=== PATIENT | female | born 2000 | race Caucasian/White ===

== ENCOUNTER 2020-02-26 00:05 | Emergency (ER) | payer OTHER ==
[~2020-02-26] VITALS: Ht 160 cm; Wt 66.8 kg
[2020-02-26 00:06] VITALS: BP 133/71
[2020-02-26] MEDS ORDERED: methocarbamoL 750 MG TAB PO ONE (04:30)
[2020-02-26] MEDS ORDERED: OXYCODONE/APAP 5MG/325MG(BULK FOR ED) 1 TABLET PO ONE (04:30)
[2020-02-26] MEDS ORDERED: ROBA750T4 PO (04:31)
== END 2020-02-26 04:37 | disposition home or self-care (01) ==
LOC: M ED 00:05
DX: M25.562 Pain in left knee (principal); Z91.013 Allergy to seafood; F17.200 Nicotine dependence, unspecified, uncomplicated; M54.5 Low back pain

== ENCOUNTER → 2020-12-25 | Outpatient (REF) | payer OTHER ==
[~2020-12-25] MED LIST: ROBA750T4 PO
== END ==
LOC: M PLALAB 10:03
PROVIDERS: ATTEND Obstetrics & Gynecology
DX: N97.9 Female infertility, unspecified (principal); Z53.9 Procedure and treatment not carried out, unspecified reason

== ENCOUNTER → 2020-12-26 | Outpatient (REF) | payer OTHER ==
[2020-12-26 15:25] LABS: FREE T4 0.87 NG/DL (0.78-1.33); THYROID STIMULATING HORMONE 3.63 uIU/ML (0.463-3.98)
[2020-12-26 15:28] LABS: ESTRADIOL 23.9 PG/ML; LUTEINIZING HORMONE 5.5 mIU/mL; PROGESTERONE 0.74 NG/ML; PROLACTIN 11.4 NG/ML
[2020-12-26 15:29] LABS: FOLLICLE STIMULATING HORMONE 6.8 mIU/mL
== END ==
LOC: M PLALAB 12:29
PROVIDERS: ATTEND Obstetrics & Gynecology
DX: N97.9 Female infertility, unspecified (principal)

== ENCOUNTER → 2021-02-06 | Outpatient (REF) | payer OTHER ==
[~2021-02-06] MED LIST changes: +PREN200C PO
== END ==
LOC: M PLALAB 09:44
PROVIDERS: ATTEND Obstetrics & Gynecology
DX: Z34.81 Encounter for supervision of other normal pregnancy, first trimester (principal); Z3A.01 Less than 8 weeks gestation of pregnancy
CPT/HCPCS: 36415; 84702; 86900; 86901; G0463

== ENCOUNTER → 2021-02-08 | Outpatient (REF) | payer OTHER ==
[~2021-02-08] MED LIST changes: -PREN200C PO
== END ==
LOC: M PLALAB 10:43
PROVIDERS: ATTEND Obstetrics & Gynecology
DX: Z36.89 Encounter for other specified antenatal screening (principal); Z3A.01 Less than 8 weeks gestation of pregnancy

== ENCOUNTER 2021-02-10 12:45 | Emergency (ER) | payer OTHER ==
[~2021-02-10] VITALS: Ht 162.6 cm; Wt 73.2 kg
[2021-02-10] MEDS ORDERED: PREN200C PO (12:51)
[2021-02-10 13:50] LABS: BASO % 0.3 % (0.0-1.0); EOS # 0.3 10^3/uL (0.0-0.5); EOS % 3.6 % (0.0-3.0); HEMATOCRIT 36.9 % (36.0-47.0); HEMOGLOBIN 12.1 g/dl (12.0-15.5); LYMPH # 1.8 10^3/uL (1.5-5.0); LYMPH % 26.4 % (24.0-44.0); MEAN CORPUSCULAR HEMOGLOBIN 27.8 pg (27.0-33.0); MEAN CORPUSCULAR HGB CONC 32.8 g/dl (32.0-36.5); MEAN CORPUSCULAR VOLUME 84.8 fl (80.0-96.0); MONO # 0.6 10^3/uL (0.0-0.8); MONO % 8.8 % (2.0-8.0); NEUTROPHILS # 4.2 10^3/uL (1.5-8.5); NEUTROPHILS % 60.6 % (36.0-66.0); PLATELET COUNT, AUTOMATED 287 10^3/uL (150-450); RED BLOOD COUNT 4.35 10^6/uL (4.00-5.40); WHITE BLOOD COUNT 6.9 10^3/uL (4.0-10.0)
[2021-02-10 14:55] LABS: BLOOD UREA NITROGEN 8 MG/DL (7-18); CALCIUM LEVEL 8.8 MG/DL (8.5-10.1); CARBON DIOXIDE LEVEL 24 MEQ/L (21-32); CHLORIDE LEVEL 108 MEQ/L (98-107); CREATININE FOR GFR 0.61 MG/DL (0.55-1.30); GLUCOSE, FASTING 96 MG/DL (70-100); HCG, SERUM QUANTITATIVE 13243 MIU/ML; POTASSIUM SERUM 3.6 MEQ/L (3.5-5.1); SODIUM LEVEL 139 MEQ/L (136-145)
--- NOTE | 2021-02-10 14:57 | REP ---
INDICATION: vag bleeding COMPARISON: None. TECHNIQUE: Transabdominal and transvaginal 1st trimester obstetrical ultrasound with color Doppler evaluation. FINDINGS: Single live early intrauterine is appreciated. Gestational sac with yolk sac and pole identified. [place]-rump length of 2 mm corresponds to 5 weeks 5 days gestational age with estimated date of delivery 10/08/2021. heart rate equals 103 beats per minute. No gross abnormalities are identified. IMPRESSION: Single live early intrauterine at 5 weeks 5 days gestational age. Complete anatomical assessment should be performed and 19-20 weeks. <Electronically signed by Umer Bird > 02/10/21 [id number]
[2021-02-10 15:13] VITALS: BP 102/50
== END 2021-02-10 15:14 | disposition home or self-care (01) ==
LOC: M ED 12:45
DX: O26.859 Spotting complicating pregnancy, unspecified trimester (principal); Z3A.01 Less than 8 weeks gestation of pregnancy; Z91.013 Allergy to seafood

== ENCOUNTER 2021-02-16 00:27 | Emergency (ER) | payer OTHER ==
[~2021-02-16] VITALS: Ht 162.6 cm; Wt 73.3 kg
[~2021-02-16 00:27] MED LIST changes: +PREN200C PO
[2021-02-16 04:44] VITALS: BP 117/56
--- NOTE | 2021-02-16 05:24 | REPVR ---
PROCEDURE INFORMATION: Exam: US First Trimester, Transabdominal Exam date and time: 02/16/2021 3:50 AM Age: 20 years old Clinical indication: Lmp or gestational age (in weeks): 12/23/2020; Other: Vaginal bleeding; ; Additional info: Th ab, hcg rise inadequate TECHNIQUE: Imaging protocol: Real-time transabdominal obstetrical ultrasound of the maternal pelvis and a first trimester , less than 14 weeks 0 days, with image documentation. COMPARISON: No relevant prior studies available. FINDINGS: Gestation: Single viable intrauterine gestation. Yolk sac present. Embryonic/ heart rate: heart rate is 127 beats per minute. Extra-embryonic membranes/Placenta: Small subchorionic hemorrhage. Amniotic fluid: Amniotic fluid is normal for gestational age. BIOMETRY: Gestational age (AUA): Sonographically estimated gestational age is 6 weeks 1 day. Estimated due date (AUA): Estimated date of delivery is 10/11/2021. [place]-Rump length: [place]-rump length of the pole is approximately 4 mm. MATERNAL: Uterus: Unremarkable. Cervix: Unremarkable. Right adnexa: Right ovary is obscured by bowel gas. Left adnexa: Left ovary is obscured by bowel gas. Intraperitoneal space: No intraperitoneal free fluid. IMPRESSION: Single viable intrauterine gestation 6 weeks 1 day of age. Small subchorionic hemorrhage. Electronically signed by: Anirudh López On 02/16/2021 05:24:46 AM
== END 2021-02-16 04:45 | disposition home or self-care (01) ==
LOC: M ED 00:27
DX: O20.0 Threatened abortion (principal); Z87.59 Personal history of other complications of pregnancy, childbirth and the puerperium; Z3A.01 Less than 8 weeks gestation of pregnancy; O20.8 Other hemorrhage in early pregnancy; Z79.899 Other long term (current) drug therapy; Z91.013 Allergy to seafood

== ENCOUNTER → 2021-02-20 | Outpatient (REF) | payer OTHER | LOC: M PLALAB 12:40 | PROVIDERS: ATTEND Obstetrics & Gynecology | DX: Z36.89 Encounter for other specified antenatal screening (principal); Z3A.08 8 weeks gestation of pregnancy ==

== ENCOUNTER → 2021-03-28 | Outpatient (CLI) | payer OTHER ==
[2021-03-28 15:31] LABS: HEMATOCRIT 34.1 % (36.0-47.0); HEMOGLOBIN 11.3 g/dl (12.0-15.5); MEAN CORPUSCULAR HEMOGLOBIN 28.3 pg (27.0-33.0); MEAN CORPUSCULAR HGB CONC 33.1 g/dl (32.0-36.5); MEAN CORPUSCULAR VOLUME 85.5 fl (80.0-96.0); PLATELET COUNT, AUTOMATED 273 10^3/uL (150-450); RED BLOOD COUNT 3.99 10^6/uL (4.00-5.40); WHITE BLOOD COUNT 10.9 10^3/uL (4.0-10.0)
[2021-03-28 16:16] LABS: HIV 1&2 SCREEN CENTAUR NEGATIVE (NEGATIVE)
[2021-03-28 17:14] LABS: GC DNA AMPLIFICATION NEGATIVE (NEGATIVE)
== END ==
LOC: M PLALAB 09:39
PROVIDERS: ATTEND Obstetrics & Gynecology
DX: Z36.89 Encounter for other specified antenatal screening (principal); Z3A.08 8 weeks gestation of pregnancy
CPT/HCPCS: 36415; 85027; 86762; 86780; 86803; 86850; 86900; 86901; 87086; 87340; 87389; 87491; 87591; G0463

== ENCOUNTER → 2021-05-22 | Outpatient (CLI) | payer OTHER ==
--- NOTE | 2021-05-23 06:10 | REP ---
INDICATION: ANATOMY COMPARISON: None. TECHNIQUE: Transabdominal obstetrical ultrasound with color Doppler evaluation. FINDINGS: Examination demonstrates a single live intrauterine in variable presentation. motion is identified by technologist. Placenta is noted anterior and grade 0 without evidence for placenta previa or abruption. Amniotic fluid volume is normal. Cervix measures 3.3 cm in length and appears closed.. Selected gestational age: 20 weeks 1 day with SHILPI 10/08/2021. Gestational age by current measurements 20 weeks 5 days with SHILPI 10/04/2021. FHR equals 135 beats per minute. BPD: 4.7 cm at 20 weeks 2 days HC: 17.7 cm at 20 weeks 1 day AC: 16.8 cm at 21 weeks 6 days FL: 3.5 cm at 20 weeks 6 days HL: 3.2 cm at 20 weeks 5 days HC/AC: 1.05 Estimated weight 408 grams (35thpercentile based on age by LMP at 21 weeks 3 days; greater than 97th percentile based on age by 1st ultrasound). Anatomical assessment demonstrates normal structures including cranium, choroid plexus, cavum, cerebellum/posterior fossa, facial features, lungs, diaphragm, stomach, cord insertion/three-vessel cord, kidneys/bladder, spine, and extremities. IMPRESSION: Single live intrauterine in variable presentation. Estimated weight and growth as described above warrants correlation. Limited evaluation of the heart/ventricular outflow tracts. Remainder of the anatomical assessment is complete and normal. <Electronically signed by Umer Bird > 05/23/21 [id number]
== END ==
LOC: M WHC 14:39
PROVIDERS: ATTEND Advanced Practice Midwife
DX: Z36.89 Encounter for other specified antenatal screening (principal); Z3A.21 21 weeks gestation of pregnancy
CPT/HCPCS: 76811; G0463

== ENCOUNTER 2021-07-03 19:46 | Outpatient (CLI) | payer OTHER ==
[~2021-07-03] VITALS: Ht 162.6 cm; Wt 81.2 kg
[2021-07-03 20:02] VITALS: BP 117/74
[2021-07-03] MEDS ORDERED: HOME MED LIST COMPLETE! XX SCH (20:15)
--- NOTE | 2021-07-03 21:09 | IPNPDOC ---
Obstetrical Progress Note Date of Service Jul 03, 2021 Subjective Subjective/HPI: 20-year-old at 25+5 weeks' gestation. Final EDC of 10/11/2021 by LMP consistent with a first trimester ultrasound. Presents today complaining of uterine cramping/possible contraction/pelvic discomfort. Denies any vaginal bleeding or loss of fluid. Reports regular movement. Denies headache, visual changes, shortness of breath, chest pain. course uncomplicated PMH/SH: Knee/ortho Objective: Normotensive. Normal heart rate. Afebrile Abdomen soft, nontender, nondistended. Uterine fundus , nontender. Extremities nonedematous, nontender Pelvic: Sterile speculum exam reveals a visually closed cervix, no pooling, no vaginal bleeding, no abnormal discharge or foul odor. Sterile vaginal/cervical exam reveals a closed long thick cervix. Transvaginal ultrasound, limited: Cervical length 4.0cm. No dynamic changes/funneling. Cephalic presentation. fFN negative EFM: Reactive, moderate variability, no decelerations [place]: No evidence of contraction pattern Assessment/plan: 20 year-old at 25+5 weeks' gestation. No evidence of premature ruptured membranes, active labor, advanced cervical dilation, or shortened cervical length. Current maternal and condition is reassuring. -Routine third trimester precautions were reviewed -Follow-up in the office as scheduled Objective Vital Signs Date Time Temp Pulse Resp B/P (MAP) Pulse Ox O2 Delivery O2 Flow Rate FiO2 07/03/21 20:02 97.6 109 18 117/74 (88) SHARON STERN DO Jul 03, 2021 21:09
== END 2021-07-03 22:00 | disposition home or self-care (01) ==
LOC: M LDO 19:46
PROVIDERS: ATTEND Obstetrics & Gynecology
DX: O26.892 Other specified pregnancy related conditions, second trimester (principal); R10.2 Pelvic and perineal pain; Z3A.25 25 weeks gestation of pregnancy
CPT/HCPCS: 59025; 76815; 81001; 82731; G0378; G0463

== ENCOUNTER → 2021-07-12 | Outpatient (CLI) | payer OTHER ==
[2021-07-12 10:37] LABS: HEMATOCRIT 29.5 % (36.0-47.0); HEMOGLOBIN 9.6 g/dl (12.0-15.5); MEAN CORPUSCULAR HEMOGLOBIN 30.1 pg (27.0-33.0); MEAN CORPUSCULAR HGB CONC 32.5 g/dl (32.0-36.5); MEAN CORPUSCULAR VOLUME 92.5 fl (80.0-96.0); PLATELET COUNT, AUTOMATED 297 10^3/uL (150-450); RED BLOOD COUNT 3.19 10^6/uL (4.00-5.40); WHITE BLOOD COUNT 10.4 10^3/uL (4.0-10.0)
== END ==
LOC: M PLALAB 07:55 → M LAB 07:55
PROVIDERS: ATTEND Advanced Practice Midwife
DX: Z34.82 Encounter for supervision of other normal pregnancy, second trimester (principal); Z36.89 Encounter for other specified antenatal screening; Z36.2 Encounter for other antenatal screening follow-up; Z3A.27 27 weeks gestation of pregnancy

== ENCOUNTER → 2021-07-12 | Outpatient (CLI) | payer OTHER ==
--- NOTE | 2021-07-12 14:06 | REP ---
INDICATION: F/U ANATOMY 4 CHAMBER HEART VOTS. COMPARISON: 05/22/2021. TECHNIQUE: Real-time sonographic evaluation of the gravid uterus performed. FINDINGS: Estimated gestational age is27 weeks 3 days, EDC 10/08/2021. Today's measurements indicate appropriate growth. Presentation: Cephalic Placenta anterior, grade 1, without evidence of placenta previa. heart rate is recorded at 161 beats per minute. Amniotic fluid is subjectively normal. Closed cervical length is measured at 4.7 cm. Biometry chart: BPD: 69 mm, 27 weeks 5 days, 55th percentile. HC: 263 mm, 28 weeks 5 days, 76th percentile AC: 237 mm, 28 weeks 0 days, 61st percentile Femur length: 53 mm, 28 weeks 0 days, 61st percentile HC to AC ratio: 1.11, normal range 1.00-1.18. Estimated weight: 1162g, 60th percentile. Four-chamber heart and ventricular outflow tracts are visualized and are grossly unremarkable. IMPRESSION: Viable single intrauterine gestation as above. <Electronically signed by Rosales Rivera > 07/12/21 [id number]
== END ==
LOC: M WHC 08:03
PROVIDERS: ATTEND Advanced Practice Midwife
DX: Z36.2 Encounter for other antenatal screening follow-up (principal)

== ENCOUNTER → 2021-07-30 | Outpatient (CLI) | payer OTHER | LOC: M LAB 08:54 | PROVIDERS: ATTEND Advanced Practice Midwife | DX: O99.810 Abnormal glucose complicating pregnancy (principal) ==

== ENCOUNTER → 2021-09-20 | Outpatient (REF) | payer OTHER ==
[~2021-09-20] MED LIST changes: +ACET1TAB55 PO
== END ==
LOC: M SFHCWAGY 16:45
PROVIDERS: ATTEND Obstetrics & Gynecology
DX: O24.419 Gestational diabetes mellitus in pregnancy, unspecified control (principal)
CPT/HCPCS: 87081; 87186; G0463

== ENCOUNTER → 2021-09-28 | Outpatient (CLI) | payer OTHER | LOC: M WHC 12:12 | PROVIDERS: ATTEND Obstetrics & Gynecology | DX: O24.419 Gestational diabetes mellitus in pregnancy, unspecified control (principal); Z3A.38 38 weeks gestation of pregnancy ==

== ENCOUNTER 2022-11-20 18:54 | Emergency (ER) | payer OTHER ==
[~2022-11-20] VITALS: Ht 162.6 cm; Wt 77.0 kg
[2022-11-20 18:55] VITALS: BP 146/76
[2022-11-20] MEDS ORDERED: cefTRIAXone SOD 2 GM in D5W MINI-BAG PLUS 50 ML IV ONE (20:45)
[2022-11-20] MEDS ORDERED: AMOX875T2 PO (20:47)
[2022-11-20] MEDS ORDERED: BOOSTRIX/ADACEL VACCINE (DIPHTH/PERTUSS/ACELL/TETANUS) 0.5ML SYR IM.IMMUN ONE (21:30)
== END 2022-11-20 22:44 | disposition home or self-care (01) ==
LOC: M ED 18:54
DX: S61.452A Open bite of left hand, initial encounter (principal); W54.0XXA Bitten by dog, initial encounter; Y92.009 Unspecified place in unspecified non-institutional (private) residence as the place of occurrence of the external cause; Z23 Encounter for immunization; Z91.013 Allergy to seafood
CPT/HCPCS: 73130; 90471; 90715; 96374; 99283; J0696

== ENCOUNTER 2022-11-22 16:55 | Observation (INO) | payer OTHER ==
[~2022-11-22] VITALS: Ht 162.6 cm; Wt 80.1 kg
[~2022-11-22 16:55] MED LIST changes: +AMOX875T2 PO
[2022-11-22] MEDS ORDERED: NS 1,000 ML IV SCH (22:45)
[2022-11-22 22:52] VITALS: BP 119/67
[2022-11-22] MEDS ORDERED: AMOX875T2 PO (23:07)
[2022-11-22] MEDS ORDERED: HOME MED LIST COMPLETE! XX SCH (23:10)
[2022-11-22] MEDS: AMPICILLIN SOD/SULBACTAM SOD 3 GM in D5W MINI-BAG PLUS 100 ML IV SCH (23:39)
[2022-11-23 00:46] LABS: HEMATOCRIT 36.1 % (36.0-47.0); HEMOGLOBIN 12.2 g/dl (12.0-15.5); MEAN CORPUSCULAR HGB CONC 33.8 g/dl (32.0-36.5); PLATELET COUNT, AUTOMATED 284 10^3/uL (150-450); WHITE BLOOD COUNT 7.7 10^3/uL (4.0-10.0)
[2022-11-23 01:08] LABS: ALBUMIN 3.9 G/DL (3.2-5.2); ALKALINE PHOSPHATASE 102 U/L (46-116); ALT/SGPT 20 U/L (7.0-40); AST/SGOT 21 U/L (<34); BILIRUBIN,TOTAL < 0.2 MG/DL (0.3-1.2); BLOOD UREA NITROGEN 9 MG/DL (9-23); CALCIUM LEVEL 8.9 MG/DL (8.5-10.1); CARBON DIOXIDE LEVEL 26 MMOL/L (20-31); CHLORIDE LEVEL 107 MMOL/L (98-107); CREATININE FOR GFR 0.55 MG/DL (0.55-1.30); GLOMERULAR FILTRATION RATE > 60.0 (>60); GLUCOSE, FASTING 106 MG/DL (60-100); POTASSIUM SERUM 3.8 MMOL/L (3.5-5.1); SODIUM LEVEL 139 MMOL/L (136-145); TOTAL PROTEIN 7.1 G/DL (5.7-8.2)
[2022-11-23] MEDS: AMPICILLIN SOD/SULBACTAM SOD 3 GM in D5W MINI-BAG PLUS 100 ML IV SCH ×4 (04:47→22:54)
[2022-11-23 06:00] VITALS: BP 104/52
[2022-11-23] MEDS ORDERED: ceFAZolin 2 GM/D5W 50 ML IV BAG As Ordered ONE (07:43)
[2022-11-23 09:02] LABS: URINE PREG TEST NEGATIVE (NEGATIVE)
[2022-11-23] MEDS ORDERED: MIDAZOLAM INJ 2MG/2ML VIAL As Ordered ONE (09:59)
[2022-11-23] MEDS ORDERED: METOCLOPRAMIDE INJ 10MG/2ML VIAL As Ordered ONE (09:59)
[2022-11-23] MEDS ORDERED: propofoL 200 MG/20 ML VIAL As Ordered ONE (09:59)
[2022-11-23] MEDS ORDERED: fentaNYL 100 MCG/2 ML INJECTION As Ordered ONE (09:59)
[2022-11-23] MEDS ORDERED: SEVOFLURANE INHAL SOLN 250 ML BTL As Ordered ONE (09:59)
[2022-11-23] MEDS ORDERED: ONDANSETRON 4MG 2ML VIAL As Ordered ONE ×2 (09:59→10:03)
[2022-11-23] MEDS ORDERED: ACETAMINOPHEN 1000MG 100ML IV BAG As Ordered ONE (09:59)
[2022-11-23] MEDS ORDERED: LIDOCAINE 2% 100MG/5ML SDV (FOR ANES.) As Ordered ONE (09:59)
[2022-11-23] MEDS ORDERED: DESFLURANE 240 ML INHALANT As Ordered ONE (09:59)
[2022-11-23] MEDS ORDERED: LR 1,000 ML IV SCH (10:05)
[2022-11-23] MEDS ORDERED: ONDANSETRON 4MG 2ML VIAL IV PRN (10:05)
[2022-11-23] MEDS ORDERED: MORPHINE 2 MG/ML 1ML VIAL IV PRN ×2 (10:05→10:50)
[2022-11-23] MEDS ORDERED: fentaNYL 100 MCG/2 ML INJECTION IV PRN (10:05)
[2022-11-23] MEDS ORDERED: oxyCODONE 5MG TAB PO PRN (10:05)
[2022-11-23 10:45] VITALS: BP 117/62
[2022-11-23] MEDS ORDERED: ACETAMINOPHEN TAB 650MG DOSE (2X325MG) PO PRN (10:50)
[2022-11-23] MEDS ORDERED: IBUPROFEN 600MG TAB PO PRN (10:50)
[2022-11-23 11:45] VITALS: BP 114/63
[2022-11-23 14:00] VITALS: BP 98/54
[2022-11-23 18:00] VITALS: BP 119/60
[2022-11-23] MEDS ORDERED: NORCO, ANEXSIA 5/325MG TABLET (HYDROcodone/ACETAMINOPHEN) PO PRN (19:30)
[2022-11-23 22:00] VITALS: BP 129/67
[2022-11-24 02:00] VITALS: BP 124/82
[2022-11-24] MEDS: KETOROLAC 30 MG/ML 1ML VIAL IV PRN ×2 (02:14→11:58)
[2022-11-24] MEDS: AMPICILLIN SOD/SULBACTAM SOD 3 GM in D5W MINI-BAG PLUS 100 ML IV SCH ×2 (04:51→11:28)
[2022-11-24 06:00] VITALS: BP 108/52
[2022-11-24 07:16] LABS: BASO % 0.2 % (0.0-1.0); EOS # 0.1 10^3/uL (0.0-0.5); EOS % 0.6 % (0.0-3.0); HEMATOCRIT 32.5 % (36.0-47.0); HEMOGLOBIN 10.9 g/dl (12.0-15.5); LYMPH # 3.3 10^3/uL (1.5-5.0); LYMPH % 34.3 % (24.0-44.0); MEAN CORPUSCULAR HEMOGLOBIN 28.9 pg (27.0-33.0); MEAN CORPUSCULAR HGB CONC 33.5 g/dl (32.0-36.5); MEAN CORPUSCULAR VOLUME 86.2 fl (80.0-96.0); MONO # 0.6 10^3/uL (0.0-0.8); MONO % 6.2 % (2.0-8.0); NEUTROPHILS # 5.6 10^3/uL (1.5-8.5); NEUTROPHILS % 58.5 % (36.0-66.0); PLATELET COUNT, AUTOMATED 233 10^3/uL (150-450); RED BLOOD COUNT 3.77 10^6/uL (4.00-5.40); WHITE BLOOD COUNT 9.5 10^3/uL (4.0-10.0)
[2022-11-24 07:39] LABS: BLOOD UREA NITROGEN 11 MG/DL (9-23); CALCIUM LEVEL 8.5 MG/DL (8.5-10.1); CARBON DIOXIDE LEVEL 25 MMOL/L (20-31); CHLORIDE LEVEL 109 MMOL/L (98-107); CREATININE FOR GFR 0.55 MG/DL (0.55-1.30); GLOMERULAR FILTRATION RATE > 60.0 (>60); GLUCOSE, FASTING 109 MG/DL (60-100); POTASSIUM SERUM 3.8 MMOL/L (3.5-5.1); SODIUM LEVEL 138 MMOL/L (136-145)
[2022-11-24] MEDS ORDERED: AMOX875T2 PO (10:21)
== END 2022-11-24 15:35 | disposition home or self-care (01) ==
LOC: M MS5PR 21:15
PROVIDERS: ADMIT Family Medicine; ATTEND Student in an Organized Health Care Education/Training Program
DX: L03.114 Cellulitis of left upper limb (principal); W54.0XXA Bitten by dog, initial encounter; Z91.013 Allergy to seafood; Z79.899 Other long term (current) drug therapy; Y92.89 Other specified places as the place of occurrence of the external cause; Y99.9 Unspecified external cause status; Y93.9 Activity, unspecified
CPT/HCPCS: 10060; 36415; 80048; 80053; 83605; 84703; 85025; 85027; 87040; 87070; 87075; 87077; 87205; 87635; 87641; 96365; 96366; 96375; 96376; J0131; J0295; J0690; J1100; J1885; J2250; J2405; J2765; J3010